=== PATIENT | male | born 1985 | race Caucasian/White ===

== ENCOUNTER 2017-10-23 21:57 | Emergency (ER) | payer OTHER, SELFPAY ==
[2017-10-23 21:58] VITALS: BP 160/96; PULSE 75; RESP 16; TEMP 36.6; O2SAT 99; BMI 33.4
--- NOTE | 2017-10-23 22:13 | RAD_ITS ---
STUDY: X-RAY - LEFT KNEE REASON FOR EXAM: Male, 32 years old. Pain TECHNIQUE: 4 view(s) of the knee. COMPARISON: None. FINDINGS: Normal visualized distal femur. Normal visualized proximal tibia and fibula. Normal proximal tibiofibular articulation. Normal medial femorotibial compartment. Normal lateral femorotibial compartment. Normal patellofemoral articulation. The soft tissue structures are unremarkable. RAD/Knee 4 or More Views IMPRESSION: Normal x-ray examination of the knee. Electronically Signed: Reinaldo Landers DO at 23:07 EDT Tel [phone], Service support ,
--- NOTE | 2017-10-23 23:11 | ED.VISSUMM ---
- ER Visit Summary Date of Service: 10/23/17 Chief Complaint: Left knee pain History of Present Illness: The patient is a 32 M who presents with left knee pain. He states he was getting up out of bed yesterday and his leg was asleep. This caused him to twist his knee and fall. This occurred over 24 hours ago. He has been able to ambulate although it is painful. He denies any paresthesias weakness or loss of function. He has tried no [id number] treatment or medications. He denies any other injuries. Physical Examination: Afebrile vitals are unremarkable Heart regular Lungs clear Active full range of motion ?4 extremities he does have active full range of motion of the left knee he has no focal bony tenderness I do not see any soft tissue swelling lacerations contusions abrasions. There is no appreciable effusion. Sensation intact light touch. Neurovascularly intact. Test Results: Knee x-ray is normal Emergency Department Course and Treatment: Patient was given an Emir wrap and advised on rest ice and elevation. He was given a prescription for naproxen. Patient discharged. Treatment Plan: [] Disposition: Discharge Impression: Acute left knee sprain This note was generated with [employer] dictation software. It may contain incorrect words, spelling, and punctuation that were not noted in review of the chart prior to signing ED Disposition - Plan for ED Patient: Chief Complaint: Lower Extremity Injury Referrals: Alvino Haddad MD [Primary Care Provider] -
--- NOTE | 2017-10-23 23:14 | ED.DEP ---
ED Disposition - Plan for ED Patient: Chief Complaint: Lower Extremity Injury Instructions: ED Sprain Knee Prescriptions: Naproxen [Naprosyn] 500 mg PO BID #20 tab Referrals: Alvino Haddad MD [Primary Care Provider] -
== END 2017-10-23 23:22 | disposition home or self-care (01) ==
LOC: ED 22:41
PROVIDERS: Emergency Provider Emergency Medicine; Family Provider Family Medicine; PCP Family Medicine
DX: S83.92XA Sprain of unspecified site of left knee, initial encounter (principal); X50.1XXA Overexertion from prolonged static or awkward postures, initial encounter; Y93.89 Activity, other specified; Y92.9 Unspecified place or not applicable; Z72.0 Tobacco use
CPT/HCPCS: 73564; 99282